=== PATIENT | female | born 1970 | race Caucasian/White ===

== ENCOUNTER 2017-12-03 05:24 | Day surgery (SDC) | payer OTHER ==
[~2017-12-03] VITALS: Ht 157.5 cm; Wt 65.8 kg
--- NOTE | ~2017-12-03 | O ---
[address] [address] OPERATIVE REPORT Name: KATHERINE HARRELL Room #: 150-3 [facility]..#: [id number] Admission: 12/03/17 Attend Phys: Alexi Lainez MD Discharge: Date of : 66 Report #: [id number] THIS REPORT FOR: //name// CC: Alexi Borden DATE OF SERVICE: 12/03/2017 SERVICE: Orthopedics. FACILITY: [facility]. SURGEON: Alexi Lainez MD FINISHER SCREWDOWN: None. PREOPERATIVE DIAGNOSES: 1. Left hip pain. 2. Left hip intra-articular Cam impingement. 3. Left hip extraarticular subspine impingement. 4. Left hip labral tear. POSTOPERATIVE DIAGNOSES: 1. Left hip pain. 2. Left hip intra-articular Cam impingement. 3. Left hip extraarticular subspine impingement. 4. Left hip labral tear. 5. Left hip acetabular chondromalacia. PROCEDURE: 1. Left hip arthroscopic labral repair. 2. Left hip arthroscopic Cam osteochondroplasty. 3. Left hip extraarticular subspine acetabuloplasty. COMPLICATIONS: None. DRAINS: None. SPECIMENS: None. ANESTHESIA: General with regional. FINDINGS: 1. Acetabular labral repair with [place] CinchLock suture anchor x 2. 2. Limited rim acetabular chondroplasty performed with a shaver. No full thickness lesions. [address] [address] OPERATIVE REPORT Name: KATHERINE HARRELL Room #: 150-3 [facility]..#: [id number] Admission: 12/03/17 Attend Phys: Alexi Lainez MD Discharge: Date of : 66 Report #: [id number] 3. Large Cam osteoplasty performed under arthroscopic and fluoroscopic visualization. HISTORY: The patient is a 47-year-old active female who was having progressive persistent left hip pain despite extensive conservative measures. She was unable to maintain her regular fitness routine despite rest, activity modification, physical therapy, intraarticular injection, oral medications and modalities. She had an MRI, which showed a labral tear and x-rays, which were consistent with femoroacetabular impingement with an alpha angle of 70 degrees and a small crossover sign attributable to a prominent anterior inferior iliac spine consistent with extraarticular acetabular-sided impingement. After she had failed conservative treatment, she elected to undergo surgical treatment. Risks, benefits, alternatives and indications of surgery were discussed with her in detail. Risks include but not limited to pain, bleeding, infection, injury to nerves or blood vessels, persistent pain despite surgical intervention, failure of any repairs or reconstruction, progression of any preexisting chondral injury, stiffness, need for further surgery as well as complications related to anesthesia such as stroke, heart attack, pulmonary complications, thromboembolic disease and . Despite these risks, she wished to proceed. PROCEDURE IN DETAIL: After left leg was correctly identified as the operative extremity, the patient underwent placement of a single shot regional nerve block by Anesthesia Team. She was then taken to the operating room and placed supine on operating table and general endotracheal anesthesia was induced without complication. All bony prominences and subcutaneous nerves were padded appropriately. Prophylactic antibiotics were administered at appropriate time. She was padded appropriately. Traction boots were applied to bilateral lower extremities and then the left hip femoral head and neck junction was mapped out under fluoroscopy to assess the Cam deformity. She had proximal Cam that started at about the 15 degree position and extended across the front to the 70 degree position and extended down the neck distally. The alpha angle at the maximum was 70 degrees. The left leg was then prepped and draped in standard sterile fashion. Time-out procedure was performed. Traction was then applied to left lower extremity. Total traction time was 33 minutes. The anterior lateral viewing portal followed by a mid anterior working portal was established in typical fashion. A transverse capsulotomy was performed. There was synovitis present in the hip. There was a labral tear at the anterior superior position, which corresponded precisely with the location of the pathology on the MRI. There was some mild yellow discoloration of the acetabular articular cartilage as well as the labrum, but overall the labral tissue was quite healthy. The shaver was used to perform a limited synovectomy of the inflamed tissue and then reflect the capsule off the dorsal side of the labrum allowing access to the acetabulum. The crossover sign on the preoperative and intraoperative x-rays was attributable to a prominent anterior inferior iliac spine and so the bur was used to recess the subspine region on the acetabular side. No rim resection was performed since her overall coverage was normal, but [address] [address] OPERATIVE REPORT Name: KATHERINE HARRELL Room #: 150-3 [facility] Gely#: [id number] Admission: 12/03/17 Attend Phys: Alexi Lainez MD Discharge: Date of : 66 Report #: [id number] the bur was used to abrade the acetabular rim at the location of the labral repair to generate bleeding surface for labral refixation. The first [place] CinchLock suture anchor was then placed in the standard fashion with a cerclage suture providing good compression of the labrum against the acetabular rim and then the second one was placed more laterally providing good secure fixation. The labrum was probed and found to be stable at this point, then the shaver was used to perform a limited chondroplasty at the acetabular rim where the chondral labral junction disruption had occurred from the Cam deformity, which corresponded with the location of the labral tear as well as the impingement position from the Cam-sided issue. At this point, traction was let down and the hip was flexed up and then the scope was placed in the anterior medial position. The Cam osteoplasty was performed in the typical fashion after the capsulotomy was extended down the femoral neck in a T-shape. The instruments were removed from the hip. Fluoroscopy was used to identify an additional area that needed further resection and then the scope was placed back into the hip. The residual Cam was then removed with the bur and then the bony debris was lavaged out of the hip. Final x-rays were taken to confirm that adequate Cam resection had been performed and then the capsule was closed with a total of five #2 Vicryl sutures. The instruments were then removed from the hip and the portal sites were closed with a deep followed by superficial Monocryl stitch. Sterile dressings applied. The patient was then awakened from anesthesia and taken to recovery room in stable condition. There were no complications and all counts were recorded as correct. <ELECTRONICALLY SIGNED> By: Alexi Lainez MD 12/03/17 1728 [id number] Alexi Lainez MD /nt
[~2017-12-03 05:24] MED LIST: CALCIUM 500 +1 EAC5 PO; EVOXAC30 MG PO; KRILL OIL 1,001 EAC1 PO; MULTIVITAMINS PO; PROBIOTIC1 EAC1 PO; RESTASIS1 EACH OPHTHALMIC
[2017-12-03 11:55] VITALS: BP 107/64
[2017-12-03 14:47] VITALS: BP 107/64
== END 2017-12-03 16:20 | disposition home or self-care (01) ==
LOC: OR 05:24 → TBA 05:24 → OR 11:59
DX: M25.852 Other specified joint disorders, left hip (principal); S73.102A Unspecified sprain of left hip, initial encounter; M94.252 Chondromalacia, left hip; Z90.710 Acquired absence of both cervix and uterus; Z98.890 Other specified postprocedural states; Y93.89 Activity, other specified; X58.XXXA Exposure to other specified factors, initial encounter; Y99.8 Other external cause status; Y92.89 Other specified places as the place of occurrence of the external cause
CPT/HCPCS: 50010; 50101; 50386; 51538; 52298; 55430; 56524; 56527; 57092; 62110; 62900; 70005

== ENCOUNTER → 2020-04-11 | Outpatient (CLI) | payer OTHER | LOC: MRI 07:05 | PROVIDERS: ATTEND Family Medicine | DX: M77.9 Enthesopathy, unspecified (principal) ==

== ENCOUNTER → 2021-03-09 | Outpatient (CLI) | payer OTHER | LOC: CAT 09:58 | PROVIDERS: ATTEND Family Medicine | DX: Z13.6 Encounter for screening for cardiovascular disorders (principal) ==